=== PATIENT | female | born 1995 | race Caucasian/White ===

== ENCOUNTER 2017-04-17 08:51 | Emergency (ER) | payer MEDICAID ==
[~2017-04-17] VITALS: Ht 160 cm; Wt 54.3 kg
[~2017-04-17 08:51] MED LIST: [UNRECOGNIZED DRUG - OTHER]
[2017-04-17] MEDS ORDERED: SODIUM CHLORIDE 0.9% 1,000 ML IV ONE (09:16)
[2017-04-17] MEDS ORDERED: ONDANSETRON 2MG/ML, 2ML IVPush ONE (09:30)
[2017-04-17] MEDS ORDERED: SODIUM CHLORIDE 0.9% 1,000ML IVBOLUS ONE (09:30)
[2017-04-17] MEDS ORDERED: MORPHINE SULFATE 4 MG/ML, 1ML IVPush PRN (09:30)
[2017-04-17 09:43] LABS: HEMATOCRIT 44.2 % (34.6-47.8); WHITE BLOOD COUNT 6.8 x10^3/uL (4.5-13.2)
[2017-04-17 09:55] LABS: ASPARTATE AMINO TRANSFERASE 13 U/L (15-37); BLOOD UREA NITROGEN 13 mg/dL (7-18)
[2017-04-17] MEDS ORDERED: CEFTRIAXONE 1,000 MG IM ONE (12:00)
[2017-04-17] MEDS ORDERED: AZITHROMYCIN 500 MG TABLET PO SCH (12:00)
[2017-04-17] MEDS ORDERED: ONDANSETRON ODT 4 MG PO ONE (12:00)
[2017-04-17] MEDS ORDERED: ONDANSETRON ODT 4 MG ONE (12:06)
[2017-04-17] MEDS ORDERED: AZITHROMYCIN 500 MG TABLET ONE (13:08)
[2017-04-17] MEDS ORDERED: CEFTRIAXONE 250 MG ONE (13:09)
[2017-04-17 13:26] VITALS: BP 127/71
== END 2017-04-17 13:27 | disposition home or self-care (01) ==
LOC: ED 10:27
DX: R10.30 Lower abdominal pain, unspecified (principal); R11.2 Nausea with vomiting, unspecified
CPT/HCPCS: 36415; 76830; 80053; 81001; 83690; 84703; 85025; 87086; 87210; 87491; 87591; 87808; 96372; 99285; J0696; Q0162

== ENCOUNTER 2017-06-13 07:52 | Emergency (ER) | payer MEDICAID ==
[~2017-06-13] VITALS: Ht 157.5 cm; Wt 54.8 kg
[2017-06-13 07:54] VITALS: BP 121/77
[2017-06-13 08:43] LABS: HEMATOCRIT 40.6 % (34.6-47.8); HEMOGLOBIN 14.1 g/dL (11.7-16.4)
[2017-06-13 08:50] LABS: ASPARTATE AMINO TRANSFERASE 11 U/L (15-37); BLOOD UREA NITROGEN 6 mg/dL (7-18)
== END 2017-06-13 09:53 | disposition home or self-care (01) ==
LOC: ED 08:10
DX: O23.41 Unspecified infection of urinary tract in pregnancy, first trimester (principal); Z3A.01 Less than 8 weeks gestation of pregnancy
CPT/HCPCS: 36415; 76801; 80053; 81001; 84702; 85025; 87086; 99285

== ENCOUNTER 2017-07-11 15:28 | Emergency (ER) | payer MEDICAID ==
[~2017-07-11] VITALS: Ht 152.4 cm; Wt 57.7 kg
[2017-07-11 15:29] VITALS: BP 114/72
[2017-07-11] MEDS ORDERED: PRENATALS (15:54)
[2017-07-11 15:56] LABS: HEMATOCRIT 40.3 % (34.6-47.8)
[2017-07-11 16:07] LABS: BLOOD UREA NITROGEN 9 mg/dL (7-18)
== END 2017-07-11 16:58 | disposition home or self-care (01) ==
LOC: ED 15:58
DX: O23.11 Infections of bladder in pregnancy, first trimester (principal); O26.891 Other specified pregnancy related conditions, first trimester; O21.9 Vomiting of pregnancy, unspecified; R31.9 Hematuria, unspecified; R11.0 Nausea; Z3A.10 10 weeks gestation of pregnancy
CPT/HCPCS: 36415; 76801; 80048; 81001; 82040; 84702; 85025; 87086; 99285

== ENCOUNTER 2017-09-06 07:45 | Emergency (ER) | payer MEDICAID ==
[~2017-09-06] VITALS: Ht 157.5 cm; Wt 61.2 kg
[~2017-09-06 07:45] MED LIST changes: +PRENATALS
[2017-09-06] MEDS ORDERED: ONDANSETRON 2MG/ML, 2ML ONE (08:33)
[2017-09-06] MEDS ORDERED: SODIUM CHLORIDE 0.9% 1,000 ML IV ONE (08:34)
[2017-09-06 08:54] LABS: BASOPHILS # (AUTO) 0.06 x10^3/uL (0-0.3); BASOPHILS % (AUTO) 0 % (0-1); EOSINOPHILS # (AUTO) 0.05 x10^3/uL (0-0.8); EOSINOPHILS % (AUTO) 0 % (1-7); LYMPHOCYTES # (AUTO) 1.14 x10^3/uL (1-6.1); LYMPHOCYTES % (AUTO) 8 % (22-44); MD NO; MEAN CORPUSCULAR HEMOGLOBIN 30.2 pg (27.0-34.8); MEAN CORPUSCULAR HGB CONC 34.8 g/dL (32.4-35.8); MEAN CORPUSCULAR VOLUME 86.7 fL (80-100); MEAN PLATELET VOLUME 9.6 fL (7.4-10.4); MONOCYTES # (AUTO) 0.62 x10^3/uL (0-1.4); MONOCYTES % (AUTO) 4 % (2-9); NEUTROPHILS # (AUTO) 12.87 x10^3/uL (1.8-8.0); NEUTROPHILS % (AUTO) 87 % (42-75); PLATELET COUNT 262 x10^3/uL (130-400); RED BLOOD COUNT 4.47 x10^6/uL (3.82-5.3); RED CELL DISTRIBUTION WIDTH 14.3 % (9.6-15.2)
[2017-09-06] MEDS ORDERED: SODIUM CHLORIDE 0.9% 1,000ML IVBOLUS ONE (09:00)
[2017-09-06] MEDS ORDERED: ONDANSETRON 2MG/ML, 2ML IVPush ONE (09:00)
[2017-09-06] MEDS ORDERED: SODIUM CHLORIDE FLUSH 10ML SYR IVF ONE (09:00)
[2017-09-06 09:05] LABS: ALANINE AMINOTRANSFERASE 13 U/L (12-78); ALBUMIN 3.6 g/dL (3.4-5.0); ANION GAP 10 mmol/L (5-15); CALCIUM 8.7 mg/dL (8.5-10.1); CHLORIDE 106 mmol/L (98-107); CREATININE 0.32 mg/dL (0.55-1.02)
[2017-09-06 09:07] LABS: ALKALINE PHOSPHATASE 64 U/L (45-117); BILIRUBIN,TOTAL 0.4 mg/dL (0.2-1.0); TOTAL PROTEIN 6.9 g/dL (6.4-8.2)
[2017-09-06 09:13] LABS: RAPID INFLUENZA A Negative (Negative); RAPID INFLUENZA B Negative (Negative)
[2017-09-06 10:21] LABS: MICROSCOPIC INDICATED
[2017-09-06 10:56] LABS: CULTURE INDICATED? YES
[2017-09-06 11:20] VITALS: BP 115/64
== END 2017-09-06 11:19 ==
LOC: ED 08:51
DX: R11.2 Nausea with vomiting, unspecified (principal); R19.7 Diarrhea, unspecified; N39.0 Urinary tract infection, site not specified
CPT/HCPCS: 36415; 80053; 81001; 85025; 87086; 87400; 96361; 96374; 99285; J2405; J7030

== ENCOUNTER 2017-09-06 19:39 | Outpatient (CLI) | payer MEDICAID | END 2017-09-06 19:54 | disposition home or self-care (01) | LOC: LDOP 19:39 | PROVIDERS: ATTEND Obstetrics & Gynecology Female Pelvic Medicine and Reconstructive Surgery | DX: Z02.9 Encounter for administrative examinations, unspecified (principal) ==

== ENCOUNTER 2018-01-17 17:39 | Emergency (ER) | payer MEDICAID ==
[~2018-01-17] VITALS: Ht 162.6 cm; Wt 71.8 kg
[2018-01-17 17:43] VITALS: BP 134/79
[2018-01-17 18:26] LABS: MICROSCOPIC AUTO
[2018-01-17 18:29] LABS: CULTURE INDICATED? YES
[2018-01-17 18:32] LABS: ANION GAP 8 mmol/L (5-15); CALCIUM 8.6 mg/dL (8.5-10.1); CHLORIDE 104 mmol/L (98-107); CREATININE 0.64 mg/dL (0.55-1.02)
[2018-01-17 18:48] LABS: BASOPHILS # (AUTO) 0.07 x10^3/uL (0-0.3); BASOPHILS % (AUTO) 1 % (0-1); EOSINOPHILS # (AUTO) 0.06 x10^3/uL (0-0.8); EOSINOPHILS % (AUTO) 1 % (1-7); LYMPHOCYTES # (AUTO) 1.79 x10^3/uL (1-6.1); LYMPHOCYTES % (AUTO) 20 % (22-44); MD NO; MEAN CORPUSCULAR HEMOGLOBIN 29.7 pg (27.0-34.8); MEAN CORPUSCULAR HGB CONC 34.2 g/dL (32.4-35.8); MEAN CORPUSCULAR VOLUME 86.9 fL (80-100); MEAN PLATELET VOLUME 10.3 fL (7.4-10.4); MONOCYTES # (AUTO) 0.65 x10^3/uL (0-1.4); MONOCYTES % (AUTO) 7 % (2-9); NEUTROPHILS # (AUTO) 6.34 x10^3/uL (1.8-8.0); NEUTROPHILS % (AUTO) 71 % (42-75); PLATELET COUNT 230 x10^3/uL (130-400); RED BLOOD COUNT 4.07 x10^6/uL (3.82-5.3); RED CELL DISTRIBUTION WIDTH 13.4 % (9.6-15.2)
[2018-01-17] MEDS ORDERED: LIDOCAINE-MPF 1%, 2ML ONE (20:54)
[2018-01-17] MEDS ORDERED: CEFTRIAXONE 1,000 MG ONE (20:54)
[2018-01-17] MEDS ORDERED: CEFTRIAXONE 1,000 MG IM ONE (21:00)
== END 2018-01-17 21:25 | disposition home or self-care (01) ==
LOC: ED 21:19
DX: O26.893 Other specified pregnancy related conditions, third trimester (principal); O23.43 Unspecified infection of urinary tract in pregnancy, third trimester; Z3A.38 38 weeks gestation of pregnancy
CPT/HCPCS: 36415; 80048; 81001; 82040; 85025; 87086; 96372; 99284; J0696

== ENCOUNTER 2018-08-05 21:41 | Emergency (ER) | payer MEDICAID ==
[~2018-08-05] VITALS: Ht 157.5 cm; Wt 57.7 kg
[2018-08-05 22:15] LABS: MICROSCOPIC AUTO
[2018-08-05] MEDS ORDERED: KETOROLAC 30 MG/1 ML ONE (22:19)
[2018-08-05] MEDS ORDERED: ONDANSETRON ODT 4 MG ONE (22:19)
[2018-08-05] MEDS ORDERED: HYDROcodone/APAP 5/325 TABLET ONE (22:20)
[2018-08-05] MEDS ORDERED: OXYcodone/APAP 5/325MG TABLET PO ONE (22:30)
[2018-08-05] MEDS ORDERED: ONDANSETRON ODT 4 MG PO ONE (22:30)
[2018-08-05] MEDS ORDERED: HYDROcodone/APAP 5/325 TABLET PO ONE (22:30)
[2018-08-05] MEDS ORDERED: KETOROLAC 30 MG/1 ML IM ONE (22:30)
[2018-08-05 23:02] LABS: BASOPHILS % (AUTO) 0 % (0-1); EOSINOPHILS # (AUTO) 0.03 x10^3/uL (0-0.4); EOSINOPHILS % (AUTO) 1 % (1-7); LYMPHOCYTES % (AUTO) 12 % (22-44); MD NO; MEAN CORPUSCULAR HEMOGLOBIN 28.6 pg (27.0-34.8); MEAN CORPUSCULAR HGB CONC 34.3 g/dL (32.4-35.8); MEAN CORPUSCULAR VOLUME 83.2 fL (80-100); MONOCYTES # (AUTO) 0.24 x10^3/uL (0.2-0.8); MONOCYTES % (AUTO) 4 % (2-9); NEUTROPHILS # (AUTO) 4.99 x10^3/uL (1.8-6.8); NEUTROPHILS % (AUTO) 84 % (42-75); PLATELET COUNT 199 x10^3/uL (130-400); RED BLOOD COUNT 4.87 x10^6/uL (3.82-5.3); RED CELL DISTRIBUTION WIDTH 13.7 % (9.6-15.2)
[2018-08-05 23:08] LABS: HCG UR SG 1.031 (1.003-1.030)
[2018-08-05 23:11] LABS: ALANINE AMINOTRANSFERASE 21 U/L (12-78); ANION GAP 9 mmol/L (5-15); CALCIUM 8.7 mg/dL (8.5-10.1); CHLORIDE 108 mmol/L (98-107); CREATININE 0.47 mg/dL (0.55-1.02)
[2018-08-05 23:14] LABS: ALKALINE PHOSPHATASE 81 U/L (45-117); BILIRUBIN,TOTAL 0.8 mg/dL (0.2-1.0); TOTAL PROTEIN 6.8 g/dL (6.4-8.2)
[2018-08-05] MEDS ORDERED: POTASSIUM CHLORIDE 20 MEQ TAB.ER.PRT ONE (23:21)
[2018-08-05] MEDS ORDERED: POTASSIUM CHLORIDE 20 MEQ TAB.ER.PRT PO ONE (23:30)
[2018-08-05] MEDS ORDERED: OMNIPAQUE 350 MG/ML, 100ML BOTTLE ONE (23:37)
[2018-08-05] MEDS ORDERED: CEFTRIAXONE PMX 1GM/50ML 50 ML ONE (23:58)
[2018-08-06] MEDS ORDERED: CEFTRIAXONE PMX 1GM/50ML 50 ML IV ONE
[2018-08-06 00:32] VITALS: BP 111/59
== END 2018-08-06 00:33 | disposition home or self-care (01) ==
LOC: ED 08-06 00:17
DX: N30.00 Acute cystitis without hematuria (principal); N83.291 Other ovarian cyst, right side; N20.0 Calculus of kidney; R19.7 Diarrhea, unspecified
CPT/HCPCS: 36415; 74177; 76770; 76830; 80053; 81001; 81025; 85025; 96365; 96372; 99284; J0696; J1885; Q0162; Q9967

== ENCOUNTER 2020-03-11 05:24 | Emergency (ER) | payer MEDICAID ==
[~2020-03-11] VITALS: Ht 157.5 cm; Wt 56.0 kg
[2020-03-11] MEDS ORDERED: ONDANSETRON ODT 4 MG ONE (05:56)
[2020-03-11] MEDS ORDERED: ONDANSETRON ODT 4 MG PO ONE (06:00)
--- NOTE | 2020-03-11 06:54 | NUR ---
REPORT FROM VINCENT HUNT.
[2020-03-11 07:15] LABS: BASOPHILS # (AUTO) 0.05 x10^3/uL (0-0.1); BASOPHILS % (AUTO) 1 % (0-1); EOSINOPHILS % (AUTO) 2 % (1-7); LYMPHOCYTES # (AUTO) 1.68 x10^3/uL (1-3.4); LYMPHOCYTES % (AUTO) 26 % (22-44); MD NO; MEAN CORPUSCULAR HEMOGLOBIN 29.3 pg (27.0-34.8); MEAN PLATELET VOLUME 10.4 fL (7.4-10.4); MONOCYTES # (AUTO) 0.42 x10^3/uL (0.2-0.8); MONOCYTES % (AUTO) 6 % (2-9); NEUTROPHILS # (AUTO) 4.32 x10^3/uL (1.8-6.8); NEUTROPHILS % (AUTO) 66 % (42-75); PLATELET COUNT 195 x10^3/uL (130-400); RED BLOOD COUNT 4.73 x10^6/uL (3.82-5.3); RED CELL DISTRIBUTION WIDTH 13.2 % (9.6-15.2)
[2020-03-11 07:17] LABS: ALANINE AMINOTRANSFERASE 18 U/L (12-78); ALBUMIN 3.8 g/dL (3.4-5.0); ANION GAP 4 mmol/L (5-15); CHLORIDE 109 mmol/L (98-107); CREATININE 0.55 mg/dL (0.55-1.02)
[2020-03-11 07:21] LABS: ALKALINE PHOSPHATASE 90 U/L (45-117); BILIRUBIN,TOTAL 0.6 mg/dL (0.2-1.0); TOTAL PROTEIN 6.5 g/dL (6.4-8.2)
[2020-03-11 07:46] LABS: MICROSCOPIC INDICATED
[2020-03-11 08:01] VITALS: BP 98/47
--- NOTE | 2020-03-11 08:08 | NUR ---
PT resting in bed, call light in reach.
--- NOTE | 2020-03-11 09:01 | NUR ---
Discharge instuctions reviewed
== END 2020-03-11 09:14 | disposition home or self-care (01) ==
LOC: ED 05:59
DX: M94.0 Chondrocostal junction syndrome [Tietze] (principal); Z20.828 Contact with and (suspected) exposure to other viral communicable diseases; R06.02 Shortness of breath; N39.0 Urinary tract infection, site not specified; R19.7 Diarrhea, unspecified; R11.10 Vomiting, unspecified; R94.31 Abnormal electrocardiogram [ECG] [EKG]; Z90.89 Acquired absence of other organs
CPT/HCPCS: 36415; 71045; 80053; 81001; 84703; 85025; 87086; 87635; 93005; 99285; Q0162